=== PATIENT | female | born 1960 | race Hispanic/Latino ===

== ENCOUNTER → 2017-10-18 | Outpatient (CLI) | payer OTHER ==
[~2017-10-18] MED LIST: ASPI-555 PO; BUTA1CAP16 PO; CHOL200074 PO; FLUT16H NASAL; GABA300S PO; LISI-613 PO; MONT10TA21 PO; TOLT4CAP PO
== END | disposition home or self-care (01) ==
LOC: SHCH 13:51
PROVIDERS: ATTEND Internal Medicine Cardiovascular Disease
DX: I87.2 Venous insufficiency (chronic) (peripheral) (principal)
CPT/HCPCS: 93970

== ENCOUNTER 2017-11-26 23:33 | Emergency (ER) | payer OTHER ==
[2017-11-26 23:53] LABS: BASOPHILS % (AUTO) 0.6 % (0.0-5.0); EOSINOPHILS % (AUTO) 1.2 % (0.0-8.0); HEMATOCRIT 38.6 % (36-48); LYMPHOCYTES % (AUTO) 41.9 % (21.0-51.0); MEAN CORPUSCULAR HEMOGLOBIN 31.3 pg (27.0-33.0); MEAN CORPUSCULAR HGB CONC 33.9 g/dL (32.0-36.0); MEAN CORPUSCULAR VOLUME 92.4 fL (79-99); MONOCYTES % (AUTO) 8.9 % (3.0-13.0); NEUTROPHILS % (AUTO) 47.4 % (40.0-77.0); PLATELET COUNT (AUTO) 190 K/uL (130-400); RED BLOOD CELL COUNT(AUTO) 4.18 MIL/uL (4.00-5.50); RED CELL DISTRIBUTION WIDTH 13.6 % (11.0-15.5); WHITE BLOOD COUNT (AUTO) 9.1 K/uL (4.8-10.8)
[2017-11-27 00:20] LABS: INR 0.93 (0.85-1.15); PARTIAL THROMBOPLASTIN TIME 25.9 SEC (26.3-35.5); PROTHROMBIN TIME 9.8 SEC (9.6-11.6)
[2017-11-27 00:21] LABS: POTASSIUM 3.7 mmol/L (3.5-5.1)
[2017-11-27 00:35] LABS: ALBUMIN 3.6 g/dL (3.5-5.0); BILIRUBIN,TOTAL 0.2 mg/dL (0.2-1.0); CREATINE KINASE MB 0.7 ng/mL (0.5-3.6); TOTAL PROTEIN, SERUM 7.3 g/dL (6.0-8.3)
[2017-11-27] MEDS ORDERED: IOHEXOL-350 75 ML VIAL IV ONE (01:00)
[2017-11-27 02:03] LABS: AMPHET/METH SCREEN,URINE NEGATIVE (NEGATIVE); BARBITURATE SCREEN, URINE NEGATIVE (NEGATIVE); BENZODIAZEPINES SCREEN,URINE NEGATIVE (NEGATIVE); CANNABINOID SCREEN,URINE NEGATIVE (NEGATIVE); COCAINE SCREEN,URINE NEGATIVE (NEGATIVE); OPIATE SCREEN,URINE NEGATIVE (NEGATIVE); PHENCYCLIDINE SCREEN,URINE NEGATIVE (NEGATIVE)
[2017-11-27] MEDS ORDERED: FERROUS FUMARATE 324 MG TABLET PO SCH (10:45)
[2017-11-27] MEDS ORDERED: VITAMIN B COMPLEX 1 CAPSULE PO SCH (10:45)
== END 2017-11-27 03:37 | disposition home or self-care (01) ==
LOC: EDH 23:33
DX: R07.89 Other chest pain (principal); I10 Essential (primary) hypertension; R42 Dizziness and giddiness; R20.0 Anesthesia of skin; M81.0 Age-related osteoporosis without current pathological fracture; M79.7 Fibromyalgia; G89.29 Other chronic pain; M54.9 Dorsalgia, unspecified; Z88.6 Allergy status to analgesic agent; Z90.49 Acquired absence of other specified parts of digestive tract
CPT/HCPCS: 36415; 71045; 71275; 80053; 80305; 82550; 82553; 83874; 84484; 85025; 85378; 85610; 85730; 93005; 93971; 94761; Q9967

== ENCOUNTER → 2017-11-27 | Outpatient (CLI) | payer OTHER | END | disposition home or self-care (01) | LOC: SHCH 12:31 | PROVIDERS: ATTEND Internal Medicine Cardiovascular Disease | DX: Z09 Encounter for follow-up examination after completed treatment for conditions other than malignant neoplasm (principal) | CPT/HCPCS: 93971 ==

== ENCOUNTER → 2018-02-15 | Outpatient (CLI) | payer OTHER ==
[~2018-02-15] MED LIST changes: +ALEN70TA47 PO; -BUTA1CAP16 PO; -CHOL200074 PO; +CHOL50004 PO; -GABA300S PO; +PANT40TA25 PO; +PRAV20TA4 PO; -TOLT4CAP PO
== END | disposition home or self-care (01) ==
LOC: RAH 11:06
PROVIDERS: ATTEND Internal Medicine Gastroenterology
DX: K30 Functional dyspepsia (principal)
CPT/HCPCS: 78264; A9541

== ENCOUNTER → 2018-08-20 | Outpatient (CLI) | payer OTHER ==
[~2018-08-20] MED LIST changes: +ALEN70TA10 PO; -ALEN70TA47 PO
== END | disposition home or self-care (01) ==
LOC: SHCH 13:49
PROVIDERS: ATTEND Internal Medicine Cardiovascular Disease
DX: I87.2 Venous insufficiency (chronic) (peripheral) (principal); R07.9 Chest pain, unspecified
CPT/HCPCS: 93306; 93970

== ENCOUNTER → 2018-08-27 | Outpatient (CLI) | payer OTHER ==
[~2018-08-27] MED LIST changes: +REGADENOSON 0.4 MG/5 ML PF SYG IVP SCH
== END | disposition home or self-care (01) ==
LOC: SHCH 08:54
PROVIDERS: ATTEND Internal Medicine Cardiovascular Disease
DX: R07.9 Chest pain, unspecified (principal)
CPT/HCPCS: 78452; 93017; 96374; A9500 ×2; J2785

== ENCOUNTER 2018-10-11 09:52 | Emergency (ER) | payer OTHER ==
[~2018-10-11 09:52] MED LIST changes: -REGADENOSON 0.4 MG/5 ML PF SYG IVP SCH
[2018-10-11] MEDS ORDERED: DEXAMETHASONE SOD PHOSPHATE 10MG/ML 1ML VIAL ONE (10:20)
[2018-10-11] MEDS ORDERED: KETOROLAC TROMETHAMINE 60 MG/2 ML VIAL ONE (10:20)
== END 2018-10-11 11:31 | disposition home or self-care (01) ==
LOC: EDH 09:52
DX: M26.622 Arthralgia of left temporomandibular joint (principal); I10 Essential (primary) hypertension; M81.0 Age-related osteoporosis without current pathological fracture; M79.7 Fibromyalgia; G89.29 Other chronic pain; M54.9 Dorsalgia, unspecified; Z88.6 Allergy status to analgesic agent; Z88.1 Allergy status to other antibiotic agents; Z90.710 Acquired absence of both cervix and uterus
CPT/HCPCS: 96372 ×2; 99284; J1100; J1885

== ENCOUNTER → 2018-11-19 | Outpatient (CLI) | payer OTHER | END | disposition home or self-care (01) | LOC: SHCH 10:00 | PROVIDERS: ATTEND Internal Medicine Cardiovascular Disease | DX: I82.4Z2 Acute embolism and thrombosis of unspecified deep veins of left distal lower extremity (principal); I10 Essential (primary) hypertension; E78.5 Hyperlipidemia, unspecified; M81.0 Age-related osteoporosis without current pathological fracture; Z90.49 Acquired absence of other specified parts of digestive tract; K21.9 Gastro-esophageal reflux disease without esophagitis | CPT/HCPCS: 93971 ==

== ENCOUNTER → 2019-08-16 | Outpatient (CLI) | payer OTHER | END | disposition home or self-care (01) | LOC: SHCH 14:57 | PROVIDERS: ATTEND Internal Medicine Cardiovascular Disease | DX: I87.2 Venous insufficiency (chronic) (peripheral) (principal) | CPT/HCPCS: 93970 ==

== ENCOUNTER → 2021-08-09 | Outpatient (CLI) | payer OTHER ==
[~2021-08-09] MED LIST changes: -ALEN70TA10 PO; +ALEN70TA80 PO; -ASPI-555 PO; +ASPI-556 PO; -LISI-613 PO; +LISI20TA24 PO; -PANT40TA25 PO; +PANT40TA54 PO
== END | disposition home or self-care (01) ==
LOC: SHCH 09:45
PROVIDERS: ATTEND Internal Medicine Cardiovascular Disease
DX: I73.9 Peripheral vascular disease, unspecified (principal)
CPT/HCPCS: 93925

== ENCOUNTER → 2021-12-16 | Outpatient (CLI) | payer OTHER | END | disposition home or self-care (01) | LOC: SHCH 13:41 | PROVIDERS: ATTEND Internal Medicine Cardiovascular Disease | DX: I87.2 Venous insufficiency (chronic) (peripheral) (principal) | CPT/HCPCS: 93970 ==

== ENCOUNTER → 2024-02-29 | Outpatient (CLI) | payer OTHER ==
[~2024-02-29] MED LIST changes: +IOHEXOL 350 MG/ML 100ML INFUS..BTL IV ONE; +MONT-47 PO; -MONT10TA21 PO
== END | disposition home or self-care (01) ==
LOC: RAH 10:30
PROVIDERS: ATTEND Internal Medicine Gastroenterology
DX: N32.89 Other specified disorders of bladder (principal); I70.90 Unspecified atherosclerosis; M47.815 Spondylosis without myelopathy or radiculopathy, thoracolumbar region; R10.10 Upper abdominal pain, unspecified; Z90.49 Acquired absence of other specified parts of digestive tract
CPT/HCPCS: 74177; Q9967

== ENCOUNTER 2024-06-07 12:50 | Emergency (ER) | payer OTHER ==
[~2024-06-07] VITALS: Ht 175.3 cm; Wt 97.5 kg
[~2024-06-07 12:50] MED LIST changes: -IOHEXOL 350 MG/ML 100ML INFUS..BTL IV ONE
--- NOTE | 2024-06-07 13:29 | ERN ---
General Chief Complaint: Mechanical Fall Stated Complaint: MECHANICAL FALL Time Seen by MD: 12:59 History of Present Illness Initial Comments 64-year-old female who presents for a fall. I had a mechanical fall where she basically did the splits. She complains of left leg pain from the hip all the way down to the ankle. There is no obvious deformities. Allergies: Coded Allergies: sulfamethoxazole (Unverified Allergy, Unknown, 08/09/21) tramadol (Unverified Allergy, Unknown, 08/09/21) trimethoprim (Unverified Allergy, Unknown, 08/09/21) ibuprofen (Unverified Adverse Reaction, Unknown, nausea / abdominal pain, 01/22/18) Home Meds Reported Medications Cholecalciferol (Vitamin D3) 5,000 Unit Capsule, 5000 UNIT PO WEEKLY , CAP 01/31/18 Pantoprazole Sodium (Pantoprazole Sodium) 40 Mg Tablet.dr, 40 MG PO DAILY, TAB 01/31/18 Alendronate Sodium (Alendronate Sodium) 70 Mg Tablet, 70 MG PO WEEKLY, TAB 01/31/18 Pravastatin Sodium (Pravastatin Sodium) 20 Mg Tablet, 20 MG PO DAILY, TAB 01/31/18 Aspirin (Aspir 81) 81 Mg Tablet.dr, 81 MG PO DAILY, TAB 08/05/15 Fluticasone Propionate (Flonase Nasal [place]) 50 Mcg/[place], 50 MCG NASAL DAILY PRN for ALLERGIES, SPRAY 08/05/15 Montelukast Sodium (Singulair) 10 Mg Tablet, 10 MG PO DAILY, TAB 08/05/15 Lisinopril (Lisinopril) 20 Mg Tablet, 20 MG PO DAILY, TAB 08/05/15 Past Medical History Past Medical History: Arthritis, Fibromyalgia, GERD, High Cholesterol, Hypertension Past Surgical History: Hysterectomy, Cholecystectomy ROS Dictation CONSTITUTIONAL: No chills, no fever, no weakness, no diaphoresis, no malaise. HEAD/FACE: No signs of trauma. EENT: No eye pain, no blurred vision, no tearing, no double vision, no ear pain, no ear discharge, no nose pain, no nasal congestion, no throat pain, no throat swelling, no mouth pain. RESPIRATORY: No cough, no orthopnea, no SOB, no stridor, no wheezing. CARDIOVASCULAR: No chest pain, no edema, no palpitations, no syncope. GASTROINTESTINAL/ABDOMINAL: No abdominal pain, no constipation, no diarrhea, no nausea, no vomiting. GENITOURINARY: No abnormal discharge, no dysuria, no frequent urination, no hematuria. No complaints of pain in the genitals. MUSCULOSKELETAL: Left leg pain INTEGUMENTARY: No change in color, no change in hair/nails, no dryness, no lesion, no lumps, no rash. NEUROLOGICAL/PSYCH: No anxiety, not depressed, no emotional problem, no headache, no numbness, no pre-existing deficit, no history of seizures, no tremors, no weakness. HEMATOLOGIC/LYMPHATIC: Not anemic, no history of blood clots, no apparent bleeding, no bruising, glands not swollen. All Systems Negative, Except as Noted. Physical Exam Physical Exam Dictation VITAL SIGNS: Reviewed. GENERAL APPEARANCE: Alert, oriented x3, no acute distress. HEAD AND FACE: Non-traumatic. EYES: PERRL, pink conjunctivas, eyelid no trauma, anterior chamber clear. EARS: Pinnas intact and no signs of trauma or erythema. Ear canals clear and no discharge. TMs no erythema. NOSE: No discharge, no bleeding. OROPHARYNX: Mouth normal, teeth no caries, tongue pink. Pharynx clear, no erythema. Tonsils no exudates, no abscesses noted. Mucous membrane moist. NECK: Supple, non-tender, no thyromegaly, no masses, no JVD, no bruits. BREAST: Deferred. CHEST: No tenderness, no crepitus, no paradoxical movement, no retractions. LUNGS: Clear, well-ventilated, symmetric, no rales, no wheezing, no rhonchi, no stridor, good breath sounds bilaterally. HEART: Regular rate, regular rhythm, no murmur, no gallops. VASCULAR: No peripheral edema. ABDOMEN: Soft, positive bowel sounds, nondistended, no guarding, nontender, no rebound, no masses no hepatomegaly, no splenomegaly, no Shultz's sign, no hernias. RECTAL: Deferred. GENITAL: Deferred. NEUROLOGICAL: Normal speech, gross motor function intact, gross sensory function intact. MUSCULOSKELETAL: Neck nontender, full range of motion, back nontender, full range of motion. EXTREMITIES: Nontender, full range of motion. SKIN: Color pink, dry, no turgor, no rash, no lacerations, no abrasions, no contusions. LYMPHATICS: Deferred. MDM CC: L leg pain s/p mechanical fall Historian: patient Comorbidities: Obesity, osteoporosis, hypertension, fibromyalgia Differential diagnosis: Soft tissue injury, fracture No labs indicated I independently interpreted the pelvis x-ray, femur x-ray, knee x-ray, tib-fib x-ray, and ankle x-ray. There are no obvious osseous abnormalities in the x-ray imaging. Patient received IV morphine for pain control. Pain improved. Ambulatory. We will DC to PCP follow up. ED Course Orders Procedure Category Date Status Time Hip Unilat 2-3vw Left RAD 06/07/24 Taken 13:25 Femur 2 Vw Left RAD 06/07/24 Taken 13:25 Knee 3vws Lt RAD 06/07/24 Taken 13:25 Tibia/Fibula 2vws Lt RAD 06/07/24 Taken 13:25 Ankle Comp 3vws Lt RAD 06/07/24 Taken 13:25 Morphine 4mg Syg PHA 06/07/24 Complete (Morphine 4mg Syg) 13:30 Ondansetron 4mg Inj PHA 06/07/24 Complete (Zofran 4mg Inj) 13:30 Current Medications Medications (Trade) Dose Ordered Sig/Roz Route PRN Reason Start Time Stop Time Status Last Admin Dose Admin Morphine Sulfate (morPHINE 4MG SYG) 4 mg ONCE ONCE IVP 06/07/24 13:30 06/07/24 13:31 DC 06/07/24 13:44 Ondansetron HCl (zoFRAN 4MG INJ) 4 mg ONCE ONCE IVP 06/07/24 13:30 06/07/24 13:31 DC 06/07/24 13:44 Vital Signs Date Time Temp Pulse Resp B/P (MAP) Pulse Ox O2 Delivery O2 Flow Rate FiO2 06/07/24 13:28 98.8 78 20 175/82 98 Room Air* 0 21 06/07/24 13:06 98.8 69 16 177/65 98 Room Air 0 DX & DISP Disposition: Discharge Departure Impression: Primary Impression: Fall Additional Impression: Left leg injury Condition: Stable Scripts Meloxicam (Meloxicam) 7.5 Mg Tablet 1 TAB PO DAILY for 10 Days, #10 TAB 0 Refills Prov: ELOISE ALBERTO DO 06/07/24 Additional Instructions: Your symptoms are consistent with musculoskeletal type pain. There are no fractures on your x-rays. Rest the leg as needed. You can apply ice to the affected area for inflammation and swelling. I have prescribed meloxicam to use as needed for pain. You can also take 1000 mg of Tylenol up to 4 times a day. This medication is [id number]. Please follow up with your primary doctor if you have any concerns. Referrals: MARIA D DOZIER M.D. (PCP) ELOISE ALBERTO DO Jun 07, 2024 13:29
[2024-06-07] MEDS: morPHINE 4 MG SYG IVP ONE (13:44)
[2024-06-07] MEDS: ondanSETRON 4MG INJ IVP ONE (13:44)
[2024-06-07] MEDS ORDERED: MELO-106 PO (14:27)
--- NOTE | 2024-06-07 14:38 | HMCIMG ---
HIP UNILAT 2-3VW LEFT REASON: fall, injury TECHNIQUE: 3 views were obtained. FINDINGS: There are stents in both the iliac veins. Soft tissues appear otherwise normal. Bones appear normal. There are no fractures. Joint spaces appear unremarkable. Views of the left hip appear normal as well. IMPRESSION: No acute finding on views of the pelvis and left hip.
--- NOTE | 2024-06-07 14:41 | HMCIMG ---
FEMUR 2 VW LEFT REASON: fall, injury TECHNIQUE: 4 views were obtained. FINDINGS: There is no evidence of fracture or dislocation. There is no joint effusion. The soft tissues appear unremarkable. There is no evidence of a radiopaque foreign body. IMPRESSION: No acute findings.
--- NOTE | 2024-06-07 14:41 | HMCIMG ---
TIBIA/FIBULA 2VWS LT REASON: fall, injury TECHNIQUE: 4 views were obtained. FINDINGS: There is no evidence of fracture or dislocation. There is no joint effusion. The soft tissues appear unremarkable. There is no evidence of a radiopaque foreign body. IMPRESSION: No acute findings.
--- NOTE | 2024-06-07 14:41 | HMCIMG ---
ANKLE COMP 3VWS LT REASON: fall, injury TECHNIQUE: 3 views were obtained. FINDINGS: There is no evidence of fracture or dislocation. There is no joint effusion. The soft tissues appear unremarkable. There is no evidence of a radiopaque foreign body. IMPRESSION: No acute findings.
[2024-06-07 14:44] VITALS: BP 154/79; PULSE 74; RESP 18; TEMP 98.1; O2SAT 98
== END 2024-06-07 14:50 | disposition home or self-care (01) ==
LOC: EDH 12:50
DX: S89.82XA Other specified injuries of left lower leg, initial encounter (principal); E66.9 Obesity, unspecified; E78.00 Pure hypercholesterolemia, unspecified; I10 Essential (primary) hypertension; K21.9 Gastro-esophageal reflux disease without esophagitis; M19.90 Unspecified osteoarthritis, unspecified site; M79.7 Fibromyalgia; Z79.82 Long term (current) use of aspirin; Z79.899 Other long term (current) drug therapy; Z88.1 Allergy status to other antibiotic agents; Z88.2 Allergy status to sulfonamides; Z88.5 Allergy status to narcotic agent; Z88.6 Allergy status to analgesic agent; Z90.49 Acquired absence of other specified parts of digestive tract; Z90.710 Acquired absence of both cervix and uterus; W18.39XA Other fall on same level, initial encounter; Y93.89 Activity, other specified; Y92.89 Other specified places as the place of occurrence of the external cause; Y99.8 Other external cause status
CPT/HCPCS: 99284; 96374; 96375; 73610; 73502; 73552; 73562; 73590; J2405; J2270

== ENCOUNTER → 2024-10-25 | Outpatient (CLI) | payer OTHER ==
[~2024-10-25] MED LIST changes: +MELO-106 PO
--- NOTE | 2024-10-25 10:03 | HMCIMG ---
US ABDOMINAL COMPLETE HISTORY: Abdominal pain COMPARISON: None TECHNIQUE: Multiple transverse and longitudinal ultrasound images of the abdomen were obtained. FINDINGS: Abdominal aorta is not well visualized. Flow is seen in the inferior vena cava. Pancreas is not well seen due to overlying bowel gas. Liver measures 15.9 cm. Liver is echogenic consistent with liver parenchymal disease. Gallbladder has been removed. Common duct measures 3 mm. The study is limited due to patient's body habitus. Both kidneys are seen. Right kidney measures 10.6 x 4.1 x 4.5 cm. Left kidney measures 11 x 2.6 x 3.8 cm. No hydronephrosis is seen of the both kidneys. The spleen is grossly unremarkable. IMPRESSION: 1. Post cholecystectomy. No ductal dilatation is seen. 2. No hydronephrosis is seen.
== END | disposition home or self-care (01) ==
LOC: RAH 09:05
PROVIDERS: ATTEND Family Medicine
DX: R10.9 Unspecified abdominal pain (principal); Z90.49 Acquired absence of other specified parts of digestive tract
CPT/HCPCS: 76700